=== PATIENT | male | born 1945 | race Caucasian/White ===

== ENCOUNTER 2018-03-12 11:08 | Emergency (ER) | payer MEDICARE, BC ==
[~2018-03-12] VITALS: Ht 182.9 cm; Wt 133.6 kg
[2018-03-12] MEDS ORDERED: POTASSIUM CHLO20 ME3 PO (11:32)
[2018-03-12] MEDS ORDERED: LASIX40 M1 PO (11:32)
[2018-03-12] MEDS ORDERED: GLIPIZIDE10 M2 PO (11:33)
[2018-03-12] MEDS ORDERED: GLUCOPHAGE1000 MG PO (11:33)
[2018-03-12] MEDS ORDERED: ZESTRIL40 M1 PO (11:33)
[2018-03-12] MEDS ORDERED: ATORVASTATIN CA40 MG PO (11:34)
[2018-03-12] MEDS ORDERED: D-1000 185 MG-11 TAB PO (11:35)
[2018-03-12] MEDS ORDERED: NIFEDIPINE PO (11:35)
[2018-03-12 12:12] LABS: BASO # 0.1 (0.02-0.10); EOS # 0.2 (0.04-0.40); EOS % 2.4 % (0.0-4.0); HEMOGLOBIN 15.4 g/dL (13.5-18.0); MEAN CELL VOLUME 88 fl (78-100); MEAN CORPUSCULAR HEMOGLOBIN 29 pg (27-31); MEAN CORPUSCULAR HGB CONC 34 g/dL (33-37); MEAN PLATELET VOLUME 10.5 fl (7.4-10.4); MONO # 0.7 (0.20-0.80); PLATELET COUNT 228 K/mm3 (130-400); RED BLOOD COUNT 5.23 M/mm3 (4.20-5.60); RED CELL DISTRIBUTION WIDTH 13.8 % (11.5-14.5); WHITE BLOOD COUNT 7.9 K/mm3 (4.8-10.8)
[2018-03-12 12:29] LABS: ALBUMIN 4.1 g/dL (3.5-5.0); BUN/CREATININE RATIO 17.8 (6.0-26.0); CALCIUM 8.8 mg/dL (8.4-10.2); TOTAL PROTEIN 7.1 g/dL (6.3-8.2)
[2018-03-12 12:31] LABS: CKMB ISOENZYME 1.8 ng/mL (0.6-3.5); D-DIMER 0.32 mg/L FEU (0.15-0.50)
[2018-03-12 12:37] LABS: TROPONIN-I < 0.03 ng/mL (0.00-0.06)
[2018-03-12] MEDS ORDERED: KETOROLAC10 MG PO (13:13)
[2018-03-12 13:33] VITALS: BP 158/92
== END 2018-03-12 13:33 | disposition home or self-care (01) ==
LOC: ED 11:08
PROVIDERS: Physician Assistant
DX: S29.012A Strain of muscle and tendon of back wall of thorax, initial encounter (principal); S39.011A Strain of muscle, fascia and tendon of abdomen, initial encounter; X50.3XXA Overexertion from repetitive movements, initial encounter; Y93.H1 Activity, digging, shoveling and raking; Y92.096 Garden or yard of other non-institutional residence as the place of occurrence of the external cause; E11.9 Type 2 diabetes mellitus without complications; I10 Essential (primary) hypertension; E78.5 Hyperlipidemia, unspecified; Z79.84 Long term (current) use of oral hypoglycemic drugs; M51.34 Other intervertebral disc degeneration, thoracic region; R60.0 Localized edema
CPT/HCPCS: J1885